=== PATIENT | female | born 1975 | race Caucasian/White ===

== ENCOUNTER → 2016-09-16 | Outpatient (CLI) | payer BC | LOC: LAB 12:28 | PROVIDERS: ATTEND Nurse Practitioner Family | DX: R05 Cough (principal); M79.1 Myalgia; B34.8 Other viral infections of unspecified site | CPT/HCPCS: 87502; 87503 ==

== ENCOUNTER → 2017-06-01 | Outpatient (CLI) | payer BC ==
--- NOTE | 2017-06-01 13:29 | MG ---
HISTORY: SCREENING Comparison: 03/19/2016 FINDINGS: CC and MLO projections of the right and left breast were obtained. Scattered fibroglandular tissue i s present. No significant architectural distortion, mass or clustered microcalcifications can be obs erved to suggest malignancy. No skin thickening or nipple retraction is appreciated. No pathologica l lymphadenopathy can be identified. IMPRESSION: NO RADIOGRAPHIC EVIDENCE OF MALIGNANCY. ACR CATEGORY I - NEGATIVE EXAM. FOLLOW-UP EXAM 1 YEAR. Diagnostic CAD was utilized and reviewed. * 0 (ZERO) - ASSESSMENT INCOMPLETE; ADDITIONAL IMAGING IS NEEDED. * 1/ (ONE) - NEGATIVE. * 2/II (TWO) - BENIGN FINDINGS. * 3/III (THREE) - PROBABLY BENIGN FINDING; SHORT INTERVAL FOLLOW-UP SUGGESTED. * 4/IV (FOUR) - SUSPICIOUS ABNORMALITY; BIOPSY SHOULD BE CONSIDERED. * 5/V - HIGHLY SUSPICIOUS OF MALIGNANCY; BIOPSY SHOULD BE PERFORMED. A NEGATIVE X-RAY REPORT SHOULD NOT DELAY BIOPSY IF A DOMINANT OR CLINICALLY SUSPICIOUS MASS IS PRESENT; 4 TO 8 PERCENT OF CANCERS ARE NOT IDENTIFIED BY X-RAY. A NEGA TIVE REPORT MAY REINFORCE THE CLINICAL IMPRESSION. ADENOSIS AND DENSE BREASTS MAY OBSCURE AN UNDERLY ING NEOPLASM. Reported By:
== END ==
LOC: RAD 08:59
PROVIDERS: ATTEND Specialist
DX: Z12.31 Encounter for screening mammogram for malignant neoplasm of breast (principal)
CPT/HCPCS: 77067

== ENCOUNTER 2022-02-12 10:53 | Observation (INO) ==
[~2022-02-12 10:53] MED LIST: KETAMINE HCL ONE; VENTOLIN or PROAIR HFA ONE
[2022-02-12] MEDS ORDERED: ANCEF VIAL 1 GRAM ONE (11:17)
[2022-02-12] MEDS ORDERED: NS 100 ML IV 100 ML ONE (11:17)
[2022-02-12] MEDS ORDERED: LR 1,000 ML IV 1,000 ML IV ONE ×2 (11:17→14:22)
[2022-02-12 11:53] LABS: SERUM PREGNANCY TEST, QUAL NEGATIVE <10 mIU/mL
[2022-02-12] MEDS ORDERED: POLYMYXIN B SULFATE ONE (13:14)
[2022-02-12] MEDS ORDERED: BETADINE SOLN ONE (13:23)
[2022-02-12] MEDS ORDERED: VERSED ONE (13:25)
[2022-02-12] MEDS ORDERED: PEPCID 20 MG VIAL ONE (13:26)
[2022-02-12] MEDS ORDERED: FENTANYL VIAL INJ 100 mcg ONE (13:26)
[2022-02-12] MEDS ORDERED: DIPRIVAN VIAL 20 ML ONE (13:26)
[2022-02-12] MEDS ORDERED: ZOFRAN INJ 4 MG VIAL ONE (13:26)
[2022-02-12] MEDS ORDERED: DECADRON INJ ONE (13:34)
[2022-02-12] MEDS ORDERED: OFIRMEV IV 1000 MG VIAL 1,000 MG/100 ML VIAL IV ONE (13:34)
[2022-02-12] MEDS ORDERED: ULTANE GAS IN ONE (13:34)
[2022-02-12] MEDS ORDERED: DUONEB 0.5 MG/3 MG (3 mL) NEB ONE ×3 (14:24→21:33)
[2022-02-12] MEDS ORDERED: DILAUDID INJ ONE (14:45)
[2022-02-12 17:19] VITALS: BMI 34.4
[2022-02-12] MEDS: PERCOCET TAB 5/325 MG PO PRN (19:12)
[2022-02-12] MEDS: ANCEF VIAL 1 GRAM IVP SCH (21:13)
[2022-02-13] MEDS: PERCOCET TAB 5/325 MG PO PRN ×4 (04:20→18:50)
[2022-02-13] MEDS: ANCEF VIAL 1 GRAM IVP SCH ×3 (05:18→21:05)
--- NOTE | 2022-02-13 07:59 | DR.PROGNOT ---
Hospital Progress Notes - Progress Note for Day of: Progress Note Date: 02/13/22 - Chief Complaint Chief Complaint: dressing was changed . has moderate erythema around the wounds . - Past Medical Family Social History Past Med/Fam/Surg Hx: No changes since H&P Allergies: Allergies amlodipine Allergy (Verified 02/12/22 11:17) sumatriptan [From Imitrex] Allergy (Verified 01/17/21 07:45) - Review Of Systems ROS: No change since H&P - Vital Signs Vital Signs: Temperature 98 F Pulse Rate [Radial] 82 Pulse Rate 75 Respiratory Rate 92 Blood Pressure [Left Arm] 144/92 Blood Pressure 161/92 O2 Sat by Pulse Oximetry 92 - Physical Exam Oriented: Normal Ear: Normal Nose: Normal Throat: Normal Cardiovascular: Normal : Normal Skin: Other (open infected wounds LLE with moderate erythema and edema .) Mood Description: Calm, Appropriate Speech Pattern: Clear, Appropriate - Laboratory and Diagnostics Labs: 02/12/22 14:00 Leg - Left Wound Gram Stain - Final 02/12/22 14:00 Leg - Left Wound Culture - Preliminary Laboratory HCG, Qual Negative <10 mIU/mL 02/12/22 11:41 Tissue Pathology To follow 02/12/22 14:00 - Assessment and Plan 2: infected wounds LLE .( two wounds ). s/p debridement . same local care , packing with Iodoform , ABD and [place] . VNA to change dressing at home .
[2022-02-13] MEDS ORDERED: TOPROL XL PO ONE (08:42)
[2022-02-13] MEDS ORDERED: COLACE CAP 100 MG PO ONE (08:47)
[2022-02-13] MEDS: COZAAR PO SCH (08:56)
[2022-02-13] MEDS: TOPROL XL PO SCH (08:57)
[2022-02-13] MEDS: DUONEB 0.5 MG/3 MG (3 mL) NEB PRN ×3 (13:24→20:00)
[2022-02-13] MEDS ORDERED: PATIENT'S HOME MEDICATION (Alprazolam 0.5 mg tablet) PO PRN (18:21)
[2022-02-13] MEDS ORDERED: XANAX PO PRN (18:28)
[2022-02-13] MEDS: ZyrTEC TAB 10 MG PO SCH (18:45)
[2022-02-14] MEDS: ANCEF VIAL 1 GRAM IVP SCH (05:20)
[2022-02-14] MEDS: DUONEB 0.5 MG/3 MG (3 mL) NEB PRN (08:20)
[2022-02-14] MEDS: ZyrTEC TAB 10 MG PO SCH (08:55)
[2022-02-14] MEDS: TOPROL XL PO SCH (08:55)
[2022-02-14] MEDS: COZAAR PO SCH (08:55)
[2022-02-14] MEDS: PERCOCET TAB 5/325 MG PO PRN (08:57)
[2022-02-14 11:40] VITALS: BP 150/80
== END 2022-02-14 11:05 | disposition home health service (06) ==
LOC: SURG1 10:53 → MED/SURG 10:53
PROVIDERS: ADMIT Surgery; ATTEND Surgery
DX: K21.9 Gastro-esophageal reflux disease without esophagitis; S71.102A Unspecified open wound, left thigh, initial encounter; B95.7 Other staphylococcus as the cause of diseases classified elsewhere; X58.XXXA Exposure to other specified factors, initial encounter; J45.998 Other asthma; I10 Essential (primary) hypertension; L03.116 Cellulitis of left lower limb

== ENCOUNTER 2023-08-20 15:23 | Observation (INO) ==
--- NOTE | 2023-08-20 16:13 | DR.H&P ---
H&P History & Physical for Day of: H&P Date: 08/20/23 Chief Complaint Chief Complaint: SOB, CCC Allergies Allergies Allergy/AdvReac Type Severity Reaction Status Date / Time sumatriptan [From Imitrex] Allergy Unknown Unverified 01/17/21 07:45 amlodipine Allergy Verified 02/12/22 11:17 History of Present Illness History of Present Illness: PT IS 48 WF, DIRECT ADMIT FROM DR ROSENTHAL OFFICE WITH CO CCC WITH SOB SINCE HAVING COVID LAST MONTH. PT HAS COMPLETED TWO ROUNDS OF ORAL ATBX AND HAD IM ROCEPHIN X2 AND KENALOG IM. PT WAS HYPERTENSIVE IN THE OFFICE 163/108. PT HAS PMH OF HTN, ASTHMA, GERD, AUBRIE, AND OA. PT ADMITTED FOR EVALUATION AND TREATMENT OF ACUTE ILLNESS. Past Medical History Past Medical History: Anxiety, Dyslipidemia and Hypertension Past Surgical History Surgical History: Appendectomy, Cholecystectomy and Other Family History Family Medical History: Cancer Medications Home Medications: Home Medications Medication Instructions Recorded Confirmed Type alprazolam 0.5 mg tablet 1 tab PO QDAY PRN 02/12/22 02/12/22 History ciprofloxacin HCl 500 mg tablet 1 tab PO BID 02/12/22 02/12/22 History furosemide 20 mg tablet 1 tab PO QDAY 02/12/22 02/12/22 History ipratropium 0.5 mg-albuterol 3 mg 3 ml inhalation QID PRN 02/12/22 02/12/22 History (2.5 mg base)/3 mL nebulization soln losartan 100 mg tablet 1 tab PO QDAY 02/12/22 02/12/22 History pantoprazole 40 mg tablet,delayed 1 tab PO BID 02/12/22 02/12/22 History release potassium chloride 10 mEq 1 cap PO QDAY 02/12/22 02/12/22 History capsule,extended release rosuvastatin 10 mg tablet 1 tab PO QPM 02/12/22 02/12/22 History sucralfate 1 gram tablet 1 tab PO QID 02/12/22 02/12/22 History sulfamethoxazole 800 1 tab PO BID 02/12/22 02/12/22 History mg-trimethoprim 160 mg tablet Review of Systems Constitutional: Weakness and Malaise Eyes: No Symptoms Reported ENT: Nose Congestion Respiratory: Cough, Shortness of Breath and Wheezing Cardiovascular: Palpitations Gastrointestinal: Nausea Genitourinary: No Symptoms Reported Musculoskeletal: Neck Pain Skin: No Symptoms Reported Neurological: Other (DIZZINESS) Oriented: Normal Eyes: Normal Nose: Discharge Throat: Dry Respiratory: Wheezes Throughout Cardiovascular: Normal and Edema Auscultation: Bowel Sounds: Normal Tenderness: Normal Skin: Decreased Turgur Musculoskeletal: Tender (NECK) Psychiatric: Anxiety Affect: Anxious Speech Pattern: Clear and Appropriate Assessment/Plan (1) Hypertension: Qualifiers: Hypertension type: unspecified Qualified Code(s): I10 - Essential (primary) hypertension Narrative Support Text: ADMIT, IV HYDRATION RESP CONSULT PRN SUPPLEMENTAL O2, ANTITUSSIVES CXR ON ADMISSION ABG ON ADMISSION D DIMER VERIFY HOME MEDICATION BP CONTROL Status: Acute (2) Acute bronchitis: Status: Acute
[2023-08-20 18:01] LABS: ABG HCO3 20.9 mmol/L (22-26)
[2023-08-20 18:02] LABS: ABG ALLEN TEST POS
[2023-08-20 18:08] LABS: BASOPHILS # (AUTO) 0.2 X10^3/uL (0.0-0.1); BASOPHILS % (AUTO) 2.7 % (0.2-1.0); EOSINOPHILS % (AUTO) 0.6 % (0.9-2.9); HEMOGLOBIN 13.6 g/dL (12.0-16.0); LYMPHOCYTES # (AUTO) 1.5 X10^3/uL (1.3-2.9); LYMPHOCYTES % (AUTO) 19.4 % (21.0-51.0); MEAN CORPUSCULAR HEMOGLOBIN 29.2 pg (27.0-34.0); MEAN CORPUSCULAR HGB CONC 33.2 g/dL (33.0-35.0); MEAN CORPUSCULAR VOLUME 88.2 fL (80.0-100.0); MEAN PLATELET VOLUME 7.2 fL (7.4-11.0); MONOCYTES # (AUTO) 0.8 x10^3/uL (0.3-0.8); MONOCYTES % (AUTO) 9.5 % (0.0-13.0); NEUTROPHILS # (AUTO) 5.4 x10^3/uL (2.2-4.8); NEUTROPHILS % (AUTO) 67.8 % (42.0-75.0); PLATELET COUNT 334 X10^3/uL (150.0-450.0); RED BLOOD COUNT 4.65 X10^6/uL (3.5-5.4); RED CELL DISTRIBUTION WIDTH 14.7 % (11.6-16.5)
[2023-08-20 18:22] LABS: ALANINE AMINOTRANSFERASE 32 Units/L (12-78); ALBUMIN 3.2 g/dL (3.4-5.0); ALKALINE PHOSPHATASE 68 Units/L (46-116); ASPARTATE AMINO TRANSFERASE 12 Units/L (15-37); BLOOD UREA NITROGEN 9 mg/dL (7-18); CARBON DIOXIDE 20.4 mmol/L (21-32); CHLORIDE 107 mmol/L (98-107); COR CA(FOR HYPOALB) 9.6 mg/dL (8.5-10.1); CREATININE 0.83 mg/dL (0.55-1.02); GLUCOSE 87 mg/dL (65-99); MAGNESIUM 1.7 mg/dL (2.0-2.9); POTASSIUM 3.8 mmol/L (3.5-5.1); SODIUM 139 mmol/L (136-145); TOTAL PROTEIN 7.2 g/dL (6.4-8.2); eGFR NON BLACK RACES > 60 (>60)
[2023-08-20 18:23] VITALS: BMI 37.5
[2023-08-20] MEDS: ROBITUSSIN DM PO SCH (18:40)
[2023-08-20] MEDS: NS 1,000 ML IV 1,000 ML IV SCH (18:40)
[2023-08-20] MEDS: TUSSIONEX PENNKINETIC SUSP PO PRN (18:40)
[2023-08-20] MEDS ORDERED: DUONEB 0.5 MG/3 MG (3 mL) NEB ONE (19:40)
[2023-08-20] MEDS ORDERED: PULMICORT NEB TX 0.5 MG NEB ONE (19:40)
[2023-08-20] MEDS: COZAAR PO SCH ×2 (20:31)
[2023-08-20] MEDS: XANAX PO PRN (20:31)
[2023-08-20] MEDS: PROTONIX INJ 40 MG VIAL IVP SCH (20:31)
[2023-08-20] MEDS: CRESTOR TAB 10 MG PO SCH (20:31)
[2023-08-20] MEDS: SOLU-Medrol 40 MG VIAL IVP SCH (20:32)
[2023-08-20] MEDS: DUONEB 0.5 MG/3 MG (3 mL) NEB SCH (20:42)
[2023-08-20] MEDS: PULMICORT NEB TX 0.5 MG NEB SCH (20:42)
[2023-08-20] MEDS ORDERED: CONSULT PHARMACY - POTASSIUM & MAGNESIUM XX SCH (21:00)
[2023-08-20] MEDS: MAG-OX TAB PO SCH (23:04)
[2023-08-20] MEDS: K-DUR TAB 20 MEQ PO SCH (23:04)
[2023-08-21 06:18] LABS: BASOPHILS % (AUTO) 0.6 % (0.2-1.0); HEMATOCRIT 41.9 % (36.0-47.0); LYMPHOCYTES # (AUTO) 1.2 X10^3/uL (1.3-2.9); MEAN CORPUSCULAR HEMOGLOBIN 29.5 pg (27.0-34.0); MEAN CORPUSCULAR HGB CONC 33.3 g/dL (33.0-35.0); MEAN CORPUSCULAR VOLUME 88.4 fL (80.0-100.0); MEAN PLATELET VOLUME 7.4 fL (7.4-11.0); MONOCYTES # (AUTO) 0.1 x10^3/uL (0.3-0.8); MONOCYTES % (AUTO) 1.5 % (0.0-13.0); NEUTROPHILS % (AUTO) 81.9 % (42.0-75.0); PLATELET COUNT 316 X10^3/uL (150.0-450.0); RED BLOOD COUNT 4.74 X10^6/uL (3.5-5.4); RED CELL DISTRIBUTION WIDTH 14.4 % (11.6-16.5); WHITE BLOOD COUNT 7.3 X10^3/uL (3.6-10.0)
[2023-08-21 06:35] LABS: ALANINE AMINOTRANSFERASE 30 Units/L (12-78); ALKALINE PHOSPHATASE 67 Units/L (46-116); ASPARTATE AMINO TRANSFERASE 14 Units/L (15-37); BLOOD UREA NITROGEN 9 mg/dL (7-18); CALCIUM 8.7 mg/dL (8.5-10.1); CARBON DIOXIDE 18.7 mmol/L (21-32); CHLORIDE 108 mmol/L (98-107); COR CA(FOR HYPOALB) 9.5 mg/dL (8.5-10.1); COR NA(FOR HYPERGLY) 141 mmol/L (136-145); CREATININE 0.76 mg/dL (0.55-1.02); GLUCOSE 133 mg/dL (65-99); MAGNESIUM 1.8 mg/dL (2.0-2.9); POTASSIUM 4.1 mmol/L (3.5-5.1); SODIUM 140 mmol/L (136-145); TOTAL PROTEIN 7.3 g/dL (6.4-8.2); eGFR NON BLACK RACES > 60 (>60)
[2023-08-21] MEDS ORDERED: CONSULT PHARMACY - POTASSIUM & MAGNESIUM XX SCH (07:00)
[2023-08-21] MEDS ORDERED: ALPRAZOLAM ODT PO PRN (07:24)
--- NOTE | 2023-08-21 08:05 | RAD ---
EXAM:Portable AP chestHISTORY:Cough congestionCOMPARISON:February 11, 2022FINDINGS:Heart size normal with no definite pulmonary, hilar or pleural lesion demonstrated. Slight nonspecific right diaphragm elevation.IMPRESSION:No acute chest abnormality demonstrated.THIS IS AN ELECTRONICALLY VERIFIED FINAL REPORT08/21/2023 8:02 AM - Electronically signed by Priyank Devries MD
[2023-08-21] MEDS ORDERED: LEXAPRO ONE (08:06)
[2023-08-21] MEDS ORDERED: ASTELIN NASAL SPRAY ENOSTRIL ONE (08:09)
[2023-08-21] MEDS: ASTELIN NASAL SPRAY ENOSTRIL SCH (08:27)
[2023-08-21] MEDS: PEPCID TAB 40 MG PO SCH (08:29)
[2023-08-21] MEDS: MAG-OX TAB PO SCH (08:30)
[2023-08-21] MEDS: LEXAPRO PO SCH (08:31)
--- NOTE | 2023-08-21 11:39 | CT ---
EXAM:CTA, CHESTHISTORY:POSS PE, COVID, PNEUMONIA ;COMPARISON:None available.TECHNIQUE:Multiple axial images of the chest were obtained from the thoracic inlet to the upper abdomen after the administration of IV contrast. 3D reconstructions utilizing axial MIPS imaging was performed and reviewed. Dose reduction techniques including Automated Exposure Control (AEC) and adjustment of mA and kV were utilized.FINDINGS:The mediastinum does not demonstrate significant pathological lymphadenopathy. There is no paracardial effusion observed. The thoracic aorta is normal in its contour without evidence for aneurysmal dilatation. The central pulmonary arterial system does not demonstrate central filling defects to suggest pulmonary emboli.Evaluation of the lung parenchyma fails to demonstrate focal consolidation or effusion . No pulmonary nodule or mass can be identified. The bony thorax is unremarkable in its appearance . The visualized portions of the upper abdomen are grossly unremarkable .IMPRESSION:Unremarkable CTA of the chest.THIS IS AN ELECTRONICALLY VERIFIED FINAL REPORT08/21/2023 11:36 AM - Electronically signed by Dl Keith MD
[2023-08-21] MEDS: TYLENOL 325 MG TAB PO PRN (22:23)
[2023-08-22 06:29] LABS: BASOPHILS % (AUTO) 0.1 % (0.2-1.0); HEMATOCRIT 40.7 % (36.0-47.0); HEMOGLOBIN 13.3 g/dL (12.0-16.0); LYMPHOCYTES # (AUTO) 1.3 X10^3/uL (1.3-2.9); LYMPHOCYTES % (AUTO) 6.1 % (21.0-51.0); MEAN CORPUSCULAR HEMOGLOBIN 28.8 pg (27.0-34.0); MEAN CORPUSCULAR HGB CONC 32.7 g/dL (33.0-35.0); MEAN CORPUSCULAR VOLUME 87.9 fL (80.0-100.0); MEAN PLATELET VOLUME 7.4 fL (7.4-11.0); MONOCYTES # (AUTO) 0.6 x10^3/uL (0.3-0.8); MONOCYTES % (AUTO) 2.9 % (0.0-13.0); NEUTROPHILS # (AUTO) 18.6 x10^3/uL (2.2-4.8); NEUTROPHILS % (AUTO) 90.9 % (42.0-75.0); PLATELET COUNT 330 X10^3/uL (150.0-450.0); RED BLOOD COUNT 4.62 X10^6/uL (3.5-5.4); RED CELL DISTRIBUTION WIDTH 14.4 % (11.6-16.5)
[2023-08-22 06:41] LABS: WHITE BLOOD COUNT 20.5 X10^3/uL (3.6-10.0)
[2023-08-22 06:44] LABS: ALANINE AMINOTRANSFERASE 28 Units/L (12-78); ALBUMIN 2.8 g/dL (3.4-5.0); ALKALINE PHOSPHATASE 64 Units/L (46-116); ASPARTATE AMINO TRANSFERASE 11 Units/L (15-37); BLOOD UREA NITROGEN 9 mg/dL (7-18); CALCIUM 8.7 mg/dL (8.5-10.1); CARBON DIOXIDE 19.7 mmol/L (21-32); CHLORIDE 109 mmol/L (98-107); COR CA(FOR HYPOALB) 9.7 mg/dL (8.5-10.1); COR NA(FOR HYPERGLY) 141 mmol/L (136-145); CREATININE 0.83 mg/dL (0.55-1.02); GLUCOSE 115 mg/dL (65-99); POTASSIUM 3.9 mmol/L (3.5-5.1); SODIUM 141 mmol/L (136-145); TOTAL PROTEIN 6.7 g/dL (6.4-8.2); eGFR NON BLACK RACES > 60 (>60)
[2023-08-22 07:38] LABS: BAND NEUTROPHILS % 0 % (0-10); BASOPHILS % (MANUAL) 0 % (0-1); PLATELET MORPHOLOGY COMMENT NORMAL (NORMAL)
[2023-08-22 08:07] VITALS: PULSE 74; O2SAT 96
--- NOTE | 2023-08-22 11:16 | DR.PROGNOT ---
HOSPITAL PROGRESS NOTE Progress Note for Day of: Progress Note Date: 08/22/23 History of Present Illness History of Present Illness: 48 y/o female admitted 2 days ago with worsening bronchitis, possible pneumonia. Doing better. Still with cough worse with deep breathing. No fever. No dyspnea at present. Has been treated with breathing treatments, IV steroids. No antibiotics while here. Had an elevated d-dimer. CTA of t he chest done yesterday was acceptable. No pneumonia, no PEs. Past Medical Family Social History Allergies: Allergies sumatriptan [From Imitrex] Allergy (Unknown, Unverified 01/17/21 07:45) Reason: Drug allergy amlodipine Allergy (Verified 02/12/22 11:17) Vital Signs Vital Signs: Vital Signs Temperature 98.1 F Temperature 97.0 F Pulse Rate [Left Brachial] 74 Pulse Rate [Left Brachial] 52 Respiratory Rate 20 Respiratory Rate 20 Blood Pressure [Left Arm] 144/76 Blood Pressure [Left Arm] 128/60 O2 Sat by Pulse Oximetry 96 O2 Sat by Pulse Oximetry 97 Physical Exam Oriented: Normal Eyes: Normal Nose: Discharge Throat: Normal and Dry Respiratory: Normal Cardiovascular: Normal GI:Auscultation: Normal GI: Tenderness: Normal Skin: Normal Musculoskeletal: Normal Psychiatric: Normal Affect: Anxious Speech Pattern: Clear and Appropriate Laboratory and Diagnostics 08/22/23 06:00 08/22/23 06:00 Labs: Laboratory WBC 20.5 X10^3/uL (3.6-10.0) H D 08/22/23 06:00 RBC 4.62 X10^6/uL (3.5-5.4) 08/22/23 06:00 Hgb 13.3 g/dL (12.0-16.0) 08/22/23 06:00 Hct 40.7 % (36.0-47.0) 08/22/23 06:00 MCV 87.9 fL (80.0-100.0) 08/22/23 06:00 MCH 28.8 pg (27.0-34.0) 08/22/23 06:00 MCHC 32.7 g/dL (33.0-35.0) L 08/22/23 06:00 RDW 14.4 % (11.6-16.5) 08/22/23 06:00 Plt Count 330 X10^3/uL (150.0-450.0) 08/22/23 06:00 Plt Count Comment Adequate (ADEQUATE) 08/22/23 06:00 MPV 7.4 fL (7.4-11.0) 08/22/23 06:00 Neut % (Auto) 90.9 % (42.0-75.0) H 08/22/23 06:00 Lymph % (Auto) 6.1 % (21.0-51.0) L 08/22/23 06:00 [place] % (Auto) 2.9 % (0.0-13.0) 08/22/23 06:00 Eos % (Auto) 0.0 % (0.9-2.9) L 08/22/23 06:00 Baso % (Auto) 0.1 % (0.2-1.0) L 08/22/23 06:00 Neut # (Auto) 18.6 x10^3/uL (2.2-4.8) H 08/22/23 06:00 Lymph # (Auto) 1.3 X10^3/uL (1.3-2.9) 08/22/23 06:00 [place] # (Auto) 0.6 x10^3/uL (0.3-0.8) 08/22/23 06:00 Eos # (Auto) 0.0 x10^3/uL (0.0-0.2) 08/22/23 06:00 Baso # (Auto) 0.0 X10^3/uL (0.0-0.1) 08/22/23 06:00 Absolute Nucleated RBC 0.0 /100WBC 08/22/23 06:00 Total Counted 100 08/22/23 06:00 Neutrophils % (Manual) 92 % (39-76) H 08/22/23 06:00 Band Neutrophils % 0 % (0-10) 08/22/23 06:00 Lymphocytes % (Manual) 6 % (13-43) L 08/22/23 06:00 Monocytes % (Manual) 2 % (4-9) L 08/22/23 06:00 Eosinophils % (Manual) 0 % (0-6) 08/22/23 06:00 Basophils % (Manual) 0 % (0-1) 08/22/23 06:00 Plt Morphology Comment Normal (NORMAL) 08/22/23 06:00 RBC Morphology Normal (NORMAL) 08/22/23 06:00 D-Dimer 0.58 ug/ml (0.0-0.57) H 08/20/23 17:48 Sample Site Rrad 08/20/23 17:58 ABG pH 7.410 (7.35-7.45) 08/20/23 17:58 ABG pCO2 33.0 mmHg (35.0-45.0) L 08/20/23 17:58 ABG pO2 97.0 mmHg (80.0-100.0) 08/20/23 17:58 ABG HCO3 20.9 mmol/L (22-26) L 08/20/23 17:58 ABG O2 Saturation 98.0 % (90-100) 08/20/23 17:58 ABG Base Excess -3.0 mmol/L (-2.0-2.0) L 08/20/23 17:58 Kush Test Pos 08/20/23 17:58 A-a Gradient 11.0 mmHg 08/20/23 17:58 FiO2 21.0 08/20/23 17:58 Blood Gas Comments Pt damian well. kg 08/20/23 17:58 Sodium 141 mmol/L (136-145) 08/22/23 06:00 Corrected Sodium 141 mmol/L (136-145) 08/22/23 06:00 Potassium 3.9 mmol/L (3.5-5.1) 08/22/23 06:00 Chloride 109 mmol/L (98-107) H 08/22/23 06:00 Carbon Dioxide 19.7 mmol/L (21-32) L 08/22/23 06:00 BUN 9 mg/dL (7-18) 08/22/23 06:00 Creatinine 0.83 mg/dL (0.55-1.02) 08/22/23 06:00 Est GFR (MDRD) Af Amer > 60 (>60) 08/22/23 06:00 Est GFR (MDRD) Non-Af > 60 (>60) 08/22/23 06:00 Glucose 115 mg/dL (65-99) H 08/22/23 06:00 Calcium 8.7 mg/dL (8.5-10.1) 08/22/23 06:00 Corrected Calcium 9.7 mg/dL (8.5-10.1) 08/22/23 06:00 Magnesium 2.0 mg/dL (2.0-2.9) 08/22/23 06:00 Total Bilirubin 0.20 mg/dL (0.2-1.0) 08/22/23 06:00 AST 11 Units/L (15-37) L 08/22/23 06:00 ALT 28 Units/L (12-78) 08/22/23 06:00 Alkaline Phosphatase 64 Units/L (46-116) 08/22/23 06:00 Total Protein 6.7 g/dL (6.4-8.2) 08/22/23 06:00 Albumin 2.8 g/dL (3.4-5.0) L 08/22/23 06:00 Globulin 3.9 g/dL (2.5-4.5) 08/22/23 06:00 Albumin/Globulin Ratio 0.7 Ratio (1.1-2.1) L 08/22/23 06:00 Assessment and Plan 1: Acute bronchitis - WBC elevated today, probable result of steroids. CTA done yesterday acceptable. No pneumonia, no CVAs. Pt ready for d/c. Will d/c on prednsione taper. No antibiotics indicated. To continue albuterol inhaler, has cough med at home. To f/u with PCP within 1 week.
[2023-08-22 12:43] VITALS: BP 133/77; RESP 22; TEMP 97.7
== END 2023-08-22 12:38 | disposition home or self-care (01) ==
LOC: MED/SURG
PROVIDERS: ADMIT Internal Medicine; ATTEND Internal Medicine
DX: J45.998 Other asthma; R79.1 Abnormal coagulation profile; R73.09 Other abnormal glucose; R79.82 Elevated C-reactive protein (CRP); R06.02 Shortness of breath; K21.9 Gastro-esophageal reflux disease without esophagitis; I10 Essential (primary) hypertension; F41.8 Other specified anxiety disorders; U09.9 Post COVID-19 condition, unspecified; J20.8 Acute bronchitis due to other specified organisms